=== PATIENT | male | born 1970 | race Caucasian/White ===

== ENCOUNTER 2017-08-23 09:43 | Inpatient (IN) | payer OTHER ==
[2017-08-23 10:45] LABS: #Basophils 0.1 thou/uL (0.0-0.2); #Lymphocytes 1.4 thou/uL (1.20-3.40); #Monocytes 2.3 thou/uL (0.11-0.59); %Basophils 0.3 % (0.0-1.0); %Eosinophils 0.2 % (0.0-10.0); %Lymphocytes 6.9 % (21.0-51.0); %Monocytes 11.8 % (0.0-10.0); %Neutrophils 80.9 % (42.0-75.0); Hemoglobin 12.8 g/dL (14.0-18.0); Mean Corpuscular Hemoglobin 31.4 pg (27.0-31.0); Mean Corpuscular Volume 95.3 fl (80.0-94.0); Mean Platelet Volume 6.9 fL (7.4-10.4); Platelet Count 361 thou/uL (130-400); RBC Distribution Width 11.2 % (11.5-14.5); Red Blood Cell (RBC) Count 4.08 mill/uL (4.70-6.10); White Blood Cell (WBC) Count 19.7 thou/uL (4.8-10.8)
[2017-08-23 11:12] LABS: ALT (SGPT) 51 U/L (8-55); AST (SGOT) 32 U/L (5-34); Albumin 3.5 g/dL (3.5-5.0); Alkaline Phosphatase 45 U/L (40-150); Anion Gap 16 mmol/L (10-20); BUN (Urea Nitrogen) 13 mg/dL (8.9-20.6); Bilirubin, Total 0.7 mg/dL (0.2-1.2); CRP (Inflammatory) 30.21 mg/dL (= or < 0.5); Calc. Creatinine Clearance 0 mL/min (70-130); Calcium 9.3 mg/dL (7.8-10.44); Carbon Dioxide 21 mmol/L (22-29); Chloride 104 mmol/L (98-107); Estimated GFR-MDRD 72; Globulin 4.3 g/dL (2.4-3.5); Glucose 122 mg/dL (70-105); Lipase 24 U/L (8-78); Potassium 3.6 mmol/L (3.5-5.1); Protein, Total 7.8 g/dL (6.0-8.3); Sodium 137 mmol/L (136-145)
[2017-08-23] MEDS ORDERED: Piperacillin/Tazobactam 4.5 GM in Sodium Chloride 0.9% 100 ML IVPB SCH (11:30)
[2017-08-23 11:45] LABS: INR-International Normal Ratio 1.2; Prothrombin Time 15.1 SEC (12.0-14.7)
--- NOTE | 2017-08-23 11:52 | CT ---
CT ABDOMEN AND PELVIS WITH CONTRAST: Date: 08/23/17 HISTORY: Abdominal pain. COMPARISON: None. FINDINGS: The lung bases are clear. No pericardial effusion. There is thickening of the sigmoid colon with some mild inflammation around the diverticulum. Within the left lobe of the liver, abutting the capsule, is a heterogeneous peripherally enhancing mass davin uring 7.2 x 5.9 x 5.5 cm. There are multiple central hypodensities within this mass, which is irregul ar heterogeneous. There is transhepatic attenuation difference demarcated with increased attenuation of the left lobe of the liver relative to the right. There are multiple smaller hypodense lesions in the right lobe of the liver, hepatic segment 7, measuring 1.2 and 0.7 cm. Small retroperitoneal lymph nodes. The spleen and pancreas are unremarkable. The hepatic mass displac es the middle and left hepatic veins and is interposed between the two. Skeleton unremarkable. IMPRESSION: 1. Heterogeneous hypodense mass in hepatic segment 2, abutting the capsule, interposed between the l eft and middle hepatic veins, measuring 7.2 x 5.9 x 5.5 cm. This has the appearance of hepatic absces s. There are multiple smaller hypodense lesions within hepatic segment 8, as well as segment 7. There may be some other smaller abscesses. Metastatic disease is also a possibility. There is also a separ ate low attenuation mass within segment 4b measuring 2.3 cm. 2. Thickening of the sigmoid colon with inflammation around diverticulum, mild. This may represent r esolving diverticulitis. A colonoscopic evaluation will be necessary after resolution of symptomatolo gy to evaluate for underlying mass. POS: HONG
[2017-08-23] MEDS ORDERED: Ondansetron HCl/PF 4 MG/2 ML Vial IVP PRN (12:00)
[2017-08-23] MEDS ORDERED: Ondansetron ODT 4 MG TAB SL PRN (12:00)
[2017-08-23 13:27] LABS: Bilirubin Negative (Negative); Blood, Urine Large (Negative); Clarity CLEAR (Clear); Glucose, Urine (Dipstick) Negative (Negative); Leukocyte Negative (Negative); Nitrite Negative (Negative); Protein, Urine (Dipstick) Negative (Neg-Trace); Urobilinogen 0.2 mg/dL (0.2-1.0)
[2017-08-23 13:29] LABS: Bacteria/HPF None Seen HPF (None Seen); Hyaline Casts/LPF 0-3 HYALINE CAST LPF (0-3 Hyaline); Pathc Cast-AUWi Flag 0.13 (0-2.49); RBC/HPF GREATER THAN 50-TNTC HPF (0-3); Squamous Epithelial None Seen HPF (0-3); WBC/HPF 0-3 HPF (0-3)
[2017-08-23 13:31] LABS: Specific Gravity, Urine Greater than 1.060 (1.002-1.036)
[2017-08-23] MEDS: Piperacillin/Tazobactam 4.5 GM in Sodium Chloride 0.9% 100 ML IVPB SCH (14:01)
[2017-08-23] MEDS ORDERED: diphenhydrAMINE 50 MG CAP PO PRN (14:25)
[2017-08-23] MEDS ORDERED: traMADol HCl 50 MG TAB PO PRN (14:25)
[2017-08-23] MEDS ORDERED: Sodium Chloride 0.9% 1,000 ML IV SCH (14:30)
[2017-08-23] MEDS ORDERED: Famotidine 20 MG TAB PO SCH (14:30)
[2017-08-23] MEDS ORDERED: ISOVUE-370 76%-LOCM 1 ML ONE (14:34)
[2017-08-23] MEDS ORDERED: Vancomycin HCl 1.5 GM, Admixture Fee 1 EACH in Sodium Chloride 0.9% 250 ML 300 ML IVPB SCH (14:45)
[2017-08-23] MEDS ORDERED: VANCOMYCIN IVPB PRN (14:49)
[2017-08-23] MEDS: Acetaminophen 500 MG TAB PO PRN ×2 (16:41→21:18)
--- NOTE | 2017-08-23 17:41 | HP ---
PRIMARY CARE PHYSICIAN: Dr. Samir Bhatia. CHIEF COMPLAINT: Fevers and body aches. HISTORY OF PRESENT ILLNESS: The patient established with me in the clinic on 08/05/2017 with flu-lik e symptoms. Flu swab and strep throat were negative; however, patient did have otitis media present, was treated with cefdinir with interval clearing of symptoms and fevers. Upon cessation of antibiot ics, generalized malaise and fevers returned, presented back to clinic. Flu swab repeat was negative as well. The patient instructed to call back if fevers continued and he did so last week when he no ticed a stool consistency and changed to looser with mucus. The patient with a known history of dive rticulitis in the past; however, the patient has not had any abdomen pain in the last 2-[address] ool changes prior to several days ago; started on ciprofloxacin and metronidazole over the last 48 ho urs; however, his fevers continued and he presented to the Emergency Department for evaluation and fo und to have a liver abscess on CT scan. On review of records in our clinic systems, the patient was seen in 2007 for abdomen pain at the [facility], established with Dr. Sidhu tem porarily, was sent to Dr. Mayo of Gastroenterology who recommended colonoscopy; however, no records of colonoscopy performed. The patient states his last colonoscopy was 2 years ago with [facility] after he changed insurances. CT scan of 2007 [facility] reviewed w ithout abnormality and no diverticulitis. Liver was normal. On formal review of systems, fevers and chills, positive malaise, body aches, changes in stool consis tency. No nausea, vomiting. No constipation. No abdomen pain. Positive for cough and congestion. No lower extremity edema. No palpitations, chest pain. No rashes. On review of the past family, medical and surgical history includes colonoscopy 2 years ago prior barbara moraima for injury. ALLERGIES: No known drug allergies. SOCIAL HISTORY: Lives with spouse and with children. No significant tobacco or alcohol use reported . PHYSICAL EXAMINATION: VITAL SIGNS: Review on arrival to the floor, temperature of 98.1, pulse of 91, respiratory rate of 1 6, oxygen saturation 98% on room air and blood pressure 146/78. GENERAL: The patient is alert and oriented, in no acute distress. HEENT: Normocephalic and atraumatic. Extraocular movements are intact. Sclerae are clear. Oral mu cosa is dry. NECK: Supple. HEART: Regular rate and rhythm. No murmurs auscultated. LUNGS: Clear to auscultation bilaterally. No rubs or wheezes. ABDOMEN: Protuberant, resonant to percussion, nontender. James's sign negative. No rebound. Nega tive fluid wave. No CVA tenderness. EXTREMITIES: No lower extremity edema. NEUROLOGIC: The patient is alert and oriented x3, no focal deficits. Speech is normal. REVIEW OF LABORATORY WORK: White blood cell count of 19.7, hemoglobin of 12.8, platelet count of 361 , neutrophils percentage 80.9 with 16% bands. INR of 1.2. Lactic acid of 4.3, CO2 21. Sodium 137, potassium of 3.6, creatinine of 1.1, glucose of 122, calcium of 9.3, AST of 32, ALT of 51, CRP of 30, alkaline phosphatase of 45, lipase of 24. Albumin 3.5. Urinalysis clear, large blood with too nume myke to count rbc's microscopy. No white blood cells, no leukocyte esterase. Specific gravity of 1. 06. IMAGING DATA: Abdomen CT reviewed heterogeneous hypodense mass and hepatic segment to measuring 7.2 x 5.9 x 5.5 cm consistent with hepatic abscess, multiple small hypodense lesions scattered throughout segment 87 taking the sigmoid colon consistent with diverticulum and inflamed recommending a colonos copy to rule out any underlying masses per Radiology. ASSESSMENT: A liver abscess diverticulitis, dehydration. PLAN: Emergency Department contacted Surgery for recommendations if patient was a candidate for any acute interventions. They recommended a CT liver abscess drained per Interventional Radiology, which is ordered and pending patient's n.p.o. at midnight. Consulting Gastroenterology for secondary opinion; start patient on broad-spectrum IV antibiotics, va ncomycin and Zosyn, which was started in the Emergency Department for continuation of metronidazole, would expect any fluid cultures, fluid produced from liver to be cultured and will adjust antibiotics as needed. Dehydration, start the patient on fluid bolus. We will start with additional IV fluids while patient is n.p.o. overnight for vital signs. The patient is not currently septic. We will fol low the patient's fever profile, vital signs, cell counts and liver enzymes while inpatient.
[2017-08-23] MEDS: D5 1/2 NS w/20 mEq KCL 1,000 ML IV SCH (18:23)
[2017-08-23] MEDS: Benzonatate 100 MG CAP PO PRN (18:24)
[2017-08-23] MEDS: metroNIDAZOLE 500 MG in Premix Bag 1 BAG IVPB SCH (18:24)
--- NOTE | 2017-08-23 19:44 | CON ---
DATE FOR CONSULTATION: 08/23/2017 REQUESTING PHYSICIAN: Dr. Bhatia. REASON FOR CONSULTATION: Liver lesion likely abscess HISTORY OF PRESENT ILLNESS: Juancarlos Escamilla is a very pleasant 47-year-old man who has a past medical history of diverticulitis attacks, a couple of mild attacks since 2014. He says his last colonoscop y was a couple of years ago at [facility] with the only finding being diverticular disease. No polyps removed. I do have that report. He had previously seen my GI colleague, Dr. Miky Mayo ab out 9 years ago for some abdominal pain symptoms at that time, but had not followed up with Dr. Mayo since then. At any rate, Mr. Escamilla really has no chronic gastrointestinal symptoms. About 3 wee ks ago, he started having malaise and flu-like symptoms. He was treated for otitis media and felt be tter for a while, but now for the past week, he has had recurrent fevers which have been quite signif icant despite alternating Tylenol and ibuprofen at home. Interestingly, he reports no abdominal pain throughout all of this and really no change in his normal bowel habits, certainly no hematochezia or diarrhea. His weight has been stable, but his appetite has been declining significantly. He underw ent a CT scan of the abdomen and pelvis earlier today and this demonstrated a 7.2 x 5.9 x 5.5 cm hete rogeneous density in the left hepatic lobe and multiple smaller lesions in the right lobe, most likel y consistent with abscess versus less likely metastatic disease. There is also an area of the sigmoi d colon with stranding consistent with diverticulitis. He has a leukocytosis and elevated CRP, note LFTs are normal. He is febrile, but hemodynamically stable. He was started on IV vancomycin, Zosyn and metronidazole. CT guided abscess drainage is planned for tomorrow with Interventional Radiology. Blood cultures are pending. Note the patient has no underlying history of chronic liver disease. Alcohol use is rare. He does not use injection drugs. REVIEW OF SYSTEMS: Full review of systems including constitutional, head, eyes, ears, nose, throat, GI, , cardiovascular, respiratory, musculoskeletal, and neurologic systems is negative except as no mary in the HPI. PAST MEDICAL HISTORY: Diverticulitis in 2015. Colonoscopy in 2015, showing diverticulosis. ALLERGIES: No known drug allergies. OUTPATIENT MEDICATIONS: None. INPATIENT MEDICATIONS: IV vancomycin, IV Zosyn, IV metronidazole. SOCIAL HISTORY: No smoking or alcohol use. FAMILY HISTORY: Negative for GI or liver disease. PHYSICAL EXAMINATION: VITAL SIGNS: Temperature 100.6, pulse 91, blood pressure 146/78, 98% oxygen saturation on room air. GENERAL: A 47-year-old man, lying in bed comfortably, in no distress. SKIN: No rash. No jaundice. EYES: No scleral icterus. Extraocular movements intact. ENT: Mucous membranes moist, no oral lesions. LYMPH: No submandibular, supraclavicular lymphadenopathy. THYROID: Nontender to palpation. HEART: Regular rate and rhythm. LUNGS: Clear to auscultation bilaterally. ABDOMEN: Bowel sounds are present, soft, mild tenderness to deep palpation in the lower abdomen, oth erwise no tenderness to the abdomen. No guarding or rebound tenderness. No palpable organomegaly ap preciated. EXTREMITIES: No peripheral edema. VESSELS: Radial pulses 2+ bilaterally. NEUROLOGICAL: Cranial nerves II-XII intact bilaterally. No focal deficits. LABORATORY STUDIES: WBC elevated at 19.7, CRP elevated at 30.21, hemoglobin 12.8, platelets 361. So dium 137, potassium 3.6, BUN 13, creatinine 1.11, glucose 122, lipase 24. LFTs all normal with total bilirubin 0.7, alkaline phosphatase 45, AST 32, ALT 51, albumin 3.5. Blood cultures are pending. IMAGING STUDIES: CT of the abdomen and pelvis demonstrates sigmoid diverticulitis and a 7.2 x 5.9 x 5.5 cm left hepatic lobe density which is heterogenous and likely represent an abscess. There are mu ltiple smaller lesions in the right hepatic lobe, possibly representing smaller abscesses versus less likely metastatic disease. ASSESSMENT AND PLAN: 1. Liver abscess. 2. Diverticulitis, sigmoid colon, minimally symptomatic. I have reviewed the films as well as the CT report. Overall, I agree that this likely does represent s a liver abscess rather than malignancy. It is unclear, if this is related to his diverticulitis, w rudy is actually very minimally symptomatic. We will order tumor markers including AFP, CA-19-9 and CEA to be drawn with his morning labs, but I expect those will be within normal limits. I do agree w ith the plan already in place for Interventional Radiology to aspirate and likely insert a drain into this abscess cavity tomorrow. Follow up all cultures including aspirate cultures and blood cultures . Continue with the antibiotics for now. I do not recommend any colonoscopy at this time acutely, t radha he will need a followup colon exam several weeks after resolution. Dr. Mayo is back tomorrow. Thank you for the consultation. Please call back with questions or concerns.
[2017-08-23] MEDS ORDERED: FLU VACC QS2017-18 36 mo. & older 0.5 ML SYRINGE IM ONE (21:00)
[2017-08-24] MEDS: D5 1/2 NS w/20 mEq KCL 1,000 ML IV SCH ×4 (00:28→18:32)
[2017-08-24] MEDS: Piperacillin/Tazobactam 4.5 GM in Sodium Chloride 0.9% 100 ML IVPB SCH ×2 (00:28→11:19)
[2017-08-24] MEDS: Vancomycin HCl 1.5 GM, Admixture Fee 1 EACH in Sodium Chloride 0.9% 250 ML 300 ML IVPB SCH ×2 (02:16→15:56)
[2017-08-24] MEDS: metroNIDAZOLE 500 MG in Premix Bag 1 BAG IVPB SCH ×2 (02:16→15:00)
[2017-08-24] MEDS: Benzonatate 100 MG CAP PO PRN ×3 (04:55→15:58)
[2017-08-24 05:28] LABS: #Eosinphils 0.2 thou/uL (0.0-0.7); #Lymphocytes 1.1 thou/uL (1.20-3.40); #Monocytes 1.6 thou/uL (0.11-0.59); %Eosinophils 1.2 % (0.0-10.0); %Lymphocytes 8.2 % (21.0-51.0); %Monocytes 12.8 % (0.0-10.0); %Neutrophils 77.8 % (42.0-75.0); Hemoglobin 11.4 g/dL (14.0-18.0); Mean Corpuscular HGB CONC 32.3 g/dL (32.0-36.0); Mean Corpuscular Hemoglobin 31.5 pg (27.0-31.0); Mean Corpuscular Volume 97.7 fl (80.0-94.0); Mean Platelet Volume 6.9 fL (7.4-10.4); Platelet Count 290 thou/uL (130-400); RBC Distribution Width 11.3 % (11.5-14.5); Red Blood Cell (RBC) Count 3.63 mill/uL (4.70-6.10); White Blood Cell (WBC) Count 12.8 thou/uL (4.8-10.8)
[2017-08-24 05:31] LABS: ALT (SGPT) 46 U/L (8-55); AST (SGOT) 29 U/L (5-34); Albumin 2.9 g/dL (3.5-5.0); Alkaline Phosphatase 44 U/L (40-150); Anion Gap 11 mmol/L (10-20); BUN (Urea Nitrogen) 9 mg/dL (8.9-20.6); Bilirubin, Total 0.5 mg/dL (0.2-1.2); Calc. Creatinine Clearance 139 mL/min (70-130); Calcium 8.3 mg/dL (7.8-10.44); Carbon Dioxide 25 mmol/L (22-29); Chloride 107 mmol/L (98-107); Estimated GFR-MDRD 81; Globulin 3.5 g/dL (2.4-3.5); Glucose 110 mg/dL (70-105); Lipase 18 U/L (8-78); Potassium 3.9 mmol/L (3.5-5.1); Protein, Total 6.4 g/dL (6.0-8.3); Sodium 139 mmol/L (136-145)
[2017-08-24 09:24] VITALS: BMI 33.4
[2017-08-24] MEDS ORDERED: Fentanyl 100 MCG/2 ML VIAL ONE (10:54)
[2017-08-24] MEDS ORDERED: Midazolam HCl 2 mg/2 ml Vial ONE (10:54)
[2017-08-24] MEDS: Acetaminophen 500 MG TAB PO PRN ×2 (11:19→17:30)
[2017-08-24] MEDS ORDERED: Sodium Chloride 0.9% 10 ML ONE (12:55)
--- NOTE | 2017-08-24 13:29 | CON ---
DATE OF CONSULTATION: 08/24/2017 REASON FOR CONSULTATION: Liver abscess, diverticulitis. HISTORY OF PRESENT ILLNESS: A 47-year-old with history of diverticulitis, treated with oral antimicr obials in the past, who, a few days ago, had diagnosed otitis media, treated with cefdinir with impro vement, but then recrudescence of malaise and fevers with what he describes as a sensation of burning or heat in the left side of the abdomen. He also noticed somewhat looser stool with mucus. He then had a recrudescence of fever and presented to the emergency room, and a CT scan demonstrated a liver abscess and so he is admitted now for management. The patient is heading for percutaneous aspirate, CT-guided. Awake and alert. No headaches, visual symptoms, sore throat, odynophagia, dysphagia, no toothache or back pain, no neck pain, no dyspnea, cough or sputum production. No genitourinary symp toms or joint symptoms. No neurological symptoms. PAST MEDICAL HISTORY: Diverticulitis, treated conservatively in the past. Last CT scan in 2007 did not show any inflammatory changes reportedly. ALLERGIES: None. 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 CURRENT MEDICATIONS: Tylenol, Tessalon, Benadryl, Pepcid, Flagyl, Zosyn, vancomycin. PHYSICAL EXAMINATION: VITAL SIGNS: T-max 101.8, blood pressure 140/70, pulse 83, respirations 20, O2 sat 95%. GENERAL: Appears in no distress. SKIN EXAM: Normal. Peripheral IV access. No Kay catheter. No lymphadenopathy. HEENT: Ocular movements are conjugate. Sclerae white. Oral cavity normal. NECK: Supple. LUNGS: With symmetric clear breath sounds. HEART: S1 and S2, regular rate. No tenderness. No ascites. No bladder distention. : No genital abnormalities. EXTREMITIES: Pulses are excellent in lower extremities. NEUROLOGIC EXAMINATION: Nonfocal. Cognitive function normal. LABORATORY DATA: White cell count 19,000 down to 12.8, hemoglobin 11, platelets 290 with 77% neutrop hils. Sodium 139, creatinine 1.0. Albumin down from 3.5 to 2.9. Lipase 18. Carcinoembryonic antig en 0.74, tumor marker AFP was less than 2. Urinalysis with 0-3 wbc's. Two sets of blood cultures pe nding at this time. Abdomen and pelvis CT from yesterday, heterogeneous hypodense mass, hepatic segm ent to abutting the capsule, which has the appearance of a hepatic abscess. There are multiple small er hypodense lesions also seen elsewhere, thickening of the sigmoid colon with inflammatory changes a round diverticulum, mild. ASSESSMENT: Diverticulitis, now with a liver abscess, which probably is a consequence of spread from the venous system and portal vein towards the liver. The usual pathogens including gram-negative ro ds, anaerobes, Streptococci are the main considerations. We will continue the current regimen and wa it for the aspirate with cultures, PICC line placement, and protracted IV antimicrobial therapy admin istration. The patient probably will have a drain placed and we will keep the drain in until there i s significant decrease in size of the abscess, most likely to be removed in the outpatient setting.
--- NOTE | 2017-08-24 15:36 | CT ---
CT GUIDED PERCUTANEOUS DRAINAGE OF THE LIVER: Date: 08/24/17 CLINICAL HISTORY: Hepatic abscess. PROCEDURE: Informed consent was obtained. The patient was escorted the procedural suite and pediatric oncologist imaging of the abdomen was acquired. The lesion of interest was located. The patient's ventral abdomen was then mar ked, and prepped and draped in the standard sterile fashion. Conscious sedation was provided by the adiology nurse and the patient was monitored throughout the procedure in stable condition. Topical an esthesia was achieved with 1% lidocaine. Using a percutaneous 13.8 cm needle, the lesion of interest was approached. The needle did reach the periphery/anterior edge of the lesion. A guidewire was advan carmela after inner stylette of the needle was removed. The guidewire did not freely coil within the pock et. Various attempts to advance the guidewire did not result in coiling of the wire within the cavity . Therefore, the guidewire was removed, and attempt for aspiration was performed. Two separate aspira tions were then performed with the 13.8 cm needle, longest needle available. Scan, sanguinous aspirat e was achieved into two separate sterile containers which were sent to laboratory for analysis. All devices were then removed from the patient. The patient tolerated the procedure well and without evidence of complication. IMPRESSION: CT guided percutaneous aspiration of hepatic abscess, as above. The deep, central location of the les ion was beyond the accessible length of the longest available drainage kit, as discussed above. Procedural results called to patient's physician, Samir Bhatia, at the time of dictation. CODE CR. POS: [facility]
[2017-08-24] MEDS ORDERED: Guaifenesin DM 100-10/5 ML UDCUP PO PRN (18:00)
[2017-08-24] MEDS ORDERED: guaiFENesin/Codeine Phosphate 200 mg/20 mg 10 ml UD Cup PO PRN (18:15)
[2017-08-24] MEDS ORDERED: Dextromethorphan Polistirex 30 MG/5 ML (89 ML BOTTLE) PO PRN (18:15)
[2017-08-24] MEDS: Guaifenesin DM 100-10/5 ML UDCUP PO PRN (18:31)
--- NOTE | 2017-08-24 20:09 | PRG ---
DATE OF SERVICE: 08/24/2017 SUBJECTIVE: He underwent CT guided drainage of the liver abscess today. The needle aspiration of th e abscess was performed from the edge of the abscess; however, the guidewire could not be placed deep ly into the abscess and a drain was not able to be placed. The patient has no acute complaints at th is time, otherwise. OBJECTIVE: VITAL SIGNS: Temperature 98.4, pulse 77, and blood pressure 160/74. GENERAL: He is in no acute distress. He is awake and alert. CHEST: Lungs are clear to auscultation bilaterally. ABDOMEN: Soft, nontender, and nondistended. LABORATORY DATA: White blood cell count 12.8, hemoglobin 11.4, and platelets 290. IMPRESSION: Liver abscess apparently from diverticulitis. He had a colonoscopy 2 years ago at [facility] by Dr. Bolden, which was otherwise negative. RECOMMENDATIONS: 1. Plan is for PICC line placement and IV antibiotics per Dr. Hare. 2. Followup imaging and duration of antibiotics again will be determined by Dr. Hare. 3. We will advance his diet. 4. Follow up in GI clinic in 6 weeks. 5. I will sign off for now. Please call if GI can be of assistance.
--- NOTE | 2017-08-24 23:29 | PRG ---
DATE OF SERVICE: 08/24/2017 HISTORY OF PRESENT ILLNESS: The patient reports he continues to have cough, has only been going on f or 2 to 3 days now. The patient's daughter was diagnosed with flu in clinic today. Flu swab of the patient was resulted as negative. The patient continues to have intermittent fevers treated with Tyl enol and states he is still feeling fatigued, slightly worse with initiation of the antibiotics in pr evious outpatient. He states he has good urination without difficulty on IV fluids. When for liver drainage abscess, he had a CT with central location of abscess, radiology unable to aspirate drain si te, aspiration was attempted at LINQ apparatus and sent for culture. OBJECTIVE: VITAL SIGNS: Temperature of 100.3, pulse of 77, respiratory rate of 20, oxygen saturation of 99% on room air, and blood pressure 160/94. GENERAL: The patient is alert and oriented, in no acute distress. HEENT: Head is normocephalic, atraumatic. Extraocular movements intact. Sclerae are clear. Oral m ucosa is moist. NECK: Supple. HEART: Regular rate and rhythm. No murmurs auscultated at the time of exam. LUNGS: Clear to auscultation bilaterally. ABDOMEN: Soft, nontender, positive bowel sounds throughout. EXTREMITIES: Lower extremities without cyanosis or edema. NEUROLOGIC: The patient is alert and oriented x3, no focal deficits. LABORATORY DATA: White blood cell count improved to 12.8, hemoglobin of 11.4, platelets of 290, neut rophils slightly improved to 77.8. Tumor marker AFP less than 2, CEA of 0.74, lipase 18, albumin of 3.5, AST of 29, ALT of 46, glucose of 110, creatinine of 1.0. Potassium of 3.9, sodium of 139, and c hloride of 107. ASSESSMENT AND PLAN: Liver abscess, diverticulitis, gastroesophageal reflux disease, cough. Continu ing cough coverage. No influenza as above. Lungs are clear. Infectious Disease consulted, recommen ding PICC line for prolonged IV antibiotics. We will follow their recommendations. Follow up leah otto is pending. The patient reports he is stable on Pepcid at this point in time regarding gastroesoph ageal reflux disease. P.r.n. cough medicines ordered.
[2017-08-25] MEDS: Guaifenesin DM 100-10/5 ML UDCUP PO PRN ×3 (00:07→17:47)
[2017-08-25] MEDS: Piperacillin/Tazobactam 4.5 GM in Sodium Chloride 0.9% 100 ML IVPB SCH ×2 (00:07→12:06)
[2017-08-25] MEDS: D5 1/2 NS w/20 mEq KCL 1,000 ML IV SCH (01:49)
[2017-08-25] MEDS: metroNIDAZOLE 500 MG in Premix Bag 1 BAG IVPB SCH ×2 (01:49→14:12)
[2017-08-25 02:23] LABS: Vancomycin, Trough 10.9 ug/mL
[2017-08-25] MEDS: Vancomycin HCl 1.75 GM in Sodium Chloride 0.9% 500 ML IVPB SCH ×2 (03:02→15:42)
[2017-08-25] MEDS: Acetaminophen 500 MG TAB PO PRN ×3 (04:14→17:37)
[2017-08-25 05:42] LABS: #Eosinphils 0.2 thou/uL (0.0-0.7); #Lymphocytes 1.4 thou/uL (1.20-3.40); #Monocytes 1.4 thou/uL (0.11-0.59); #Neutrophils 9.7 thou/uL (1.40-6.50); %Basophils 0.1 % (0.0-1.0); %Eosinophils 1.5 % (0.0-10.0); %Lymphocytes 10.8 % (21.0-51.0); %Monocytes 10.7 % (0.0-10.0); %Neutrophils 76.9 % (42.0-75.0); Hemoglobin 10.6 g/dL (14.0-18.0); Mean Corpuscular HGB CONC 32.7 g/dL (32.0-36.0); Mean Corpuscular Hemoglobin 31.6 pg (27.0-31.0); Mean Corpuscular Volume 96.6 fl (80.0-94.0); Mean Platelet Volume 6.8 fL (7.4-10.4); Platelet Count 278 thou/uL (130-400); RBC Distribution Width 11.2 % (11.5-14.5); Red Blood Cell (RBC) Count 3.35 mill/uL (4.70-6.10); White Blood Cell (WBC) Count 12.6 thou/uL (4.8-10.8)
[2017-08-25 05:58] LABS: ALT (SGPT) 39 U/L (8-55); AST (SGOT) 24 U/L (5-34); Albumin 2.7 g/dL (3.5-5.0); Alkaline Phosphatase 39 U/L (40-150); Anion Gap 10 mmol/L (10-20); BUN (Urea Nitrogen) 6 mg/dL (8.9-20.6); Bilirubin, Total 0.5 mg/dL (0.2-1.2); Calc. Creatinine Clearance 152 mL/min (70-130); Calcium 8.1 mg/dL (7.8-10.44); Carbon Dioxide 23 mmol/L (22-29); Chloride 106 mmol/L (98-107); Estimated GFR-MDRD 89; Globulin 3.3 g/dL (2.4-3.5); Glucose 110 mg/dL (70-105); Lipase 18 U/L (8-78); Potassium 3.8 mmol/L (3.5-5.1); Sodium 135 mmol/L (136-145)
--- NOTE | 2017-08-25 09:58 | PRG ---
DATE OF SERVICE: 08/25/2017 HISTORY OF PRESENT ILLNESS: The patient states he broke into a cold sweat this morning which is the first time he feels like his fever has truly broken since it occurred. He continued on Tylenol episo dically for this. He still reports fatigue. Still reports cough, no phlegm production. No abdomen pain. He is still urinating and having bowel movements without difficulty. VITAL SIGNS: Temperature of 100.3 yesterday evening, a.m. temperature of 98.7, pulse of 68, respirat ory rate of 18, oxygen saturation 100% on room air, blood pressure 152/90. LABORATORY DATA: White blood cell count improved to 12.6, hemoglobin at 10.6, status post attempted liver aspiration, platelet count 278, % neutrophils 76.9, slightly improved, albumin of 2.7. Lipase of 18, AST of 24, ALT of 39, total bilirubin 0.5, glucose 110, creatinine 0.9, CO2 23, sodium 135, p otassium 3.8, vancomycin trough of 10.9. Blood cultures x2 currently negative. Influenza negative. Gram stain, no organisms on attempted liver aspirate. PHYSICAL EXAMINATION: GENERAL: The patient is alert and oriented, in no acute distress. HEENT: Normocephalic, atraumatic. Extraocular movements are intact. Sclerae are clear. Oral mucos a is moist. NECK: Supple. HEART: Regular rate and rhythm at time of exam. No murmurs auscultated. LUNGS: Clear to auscultation bilaterally. ABDOMEN: Soft, nontender, positive bowel sounds throughout. No rebound or guarding. EXTREMITIES: Lower extremities without cyanosis or edema. NEUROLOGIC: The patient is alert and oriented x3, no focal deficits. Speech is normal. ASSESSMENT AND PLAN: Liver abscess, diverticulitis. Gastroenterology signed off, recommended charley nuation of plan for PICC line and long-term IV antibiotics. We will follow up on cultures and Infect ious Disease recommendations for outpatient antibiotics. The patient will likely remain inpatient fo r the next couple of days while cultures are being read out why he continues to have fevers. We will continue the Tylenol, will likely cover with low dose amlodipine regarding the patient's blood press ure elevation and hypertension, it may be stress induced reaction, but we will continue to follow.
[2017-08-25] MEDS ORDERED: Sodium Chloride 0.9% 10 ML ONE ×3 (10:48→21:38)
--- NOTE | 2017-08-25 18:42 | PRG ---
DATE OF SERVICE: 08/25/2017 SUBJECTIVE: The liver abscess percutaneous aspirate procedure was not successful or at least partial ly successful. The area of the abscess was beyond the reach of the catheter and the guidewire could not be threaded all the way to the abscess cavity. A little bit of serosanguineous fluid was aspirat ed and submitted for cultures. The patient has developed a cough, which is short of paroxysmal, last s for a few minutes and then resolves. No headaches. No abdominal pain. No diarrhea. No genitouri nary symptoms. OBJECTIVE: VITAL SIGNS: T-max 101.6, blood pressure 160/82, pulse 81, respirations 18-20. GENERAL: Awake and alert. Coughing intermittently. LUNGS: With clear breath sounds. HEART: S1, S2, regular rate. ABDOMEN: Soft, not distended or tender. LABORATORY: White cell count 12.6, hemoglobin 10.6, platelets 278. Sodium 135, creatinine 0.92. Li ellen profile normal. Bacterial culture pending. Blood cultures negative thus far. ASSESSMENT: Liver abscess, diverticulitis, now with cough. 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 We will switch him to meropenem f rom the current antimicrobials. The usual pathogens involved in the liver abscess should respond wel l to meropenem. The amoebic liver abscess is unlikely. PICC line placement is not ordered yet.
--- NOTE | 2017-08-25 19:58 | RAD ---
PA AND LATERAL CHEST: 08/25/17 HISTORY: Cough. Heart size appears slightly enlarged. Mediastinal structures are unremarkable. The lungs are clear of infiltrates. IMPRESSION: Minimal cardiomegaly. POS: [facility]
[2017-08-25] MEDS: Meropenem 1 GM in Sterile Water 20 ML SLOW IVP SCH (21:41)
[2017-08-25] MEDS ORDERED: Meropenem 1 GM in Sodium Chloride 0.9% 100 ML IVPB SCH (22:00)
[2017-08-26] MEDS: Acetaminophen 500 MG TAB PO PRN ×2 (01:35→08:40)
[2017-08-26] MEDS ORDERED: Sodium Chloride 0.9% 10 ML ONE ×3 (04:23→19:54)
[2017-08-26] MEDS: Meropenem 1 GM in Sterile Water 20 ML SLOW IVP SCH ×3 (04:48→20:03)
[2017-08-26 06:06] LABS: ALT (SGPT) 48 U/L (8-55); AST (SGOT) 37 U/L (5-34); Albumin 2.9 g/dL (3.5-5.0); Alkaline Phosphatase 38 U/L (40-150); Anion Gap 12 mmol/L (10-20); BUN (Urea Nitrogen) 8 mg/dL (8.9-20.6); Bilirubin, Total 0.3 mg/dL (0.2-1.2); Calc. Creatinine Clearance 120 mL/min (70-130); Calcium 8.5 mg/dL (7.8-10.44); Carbon Dioxide 24 mmol/L (22-29); Chloride 106 mmol/L (98-107); Estimated GFR-MDRD 68; Globulin 3.4 g/dL (2.4-3.5); Glucose 102 mg/dL (70-105); Potassium 3.7 mmol/L (3.5-5.1); Protein, Total 6.3 g/dL (6.0-8.3); Sodium 138 mmol/L (136-145)
[2017-08-26 06:14] LABS: Band 2 % (5-11); Lymphocytes 14 % (21-51); MDiff Complete? YES; Macrocytosis SLIGHT = 6-15 cells (100X) (0-5/hpf); Mean Corpuscular Hemoglobin 31.8 pg (27.0-31.0); Mean Corpuscular Volume 96.4 fl (80.0-94.0); Mean Platelet Volume 6.5 fL (7.4-10.4); Metamyelocyte 1 % (0-0); Monocytes 18 % (0-10); Neutrophil 65 % (42-75); PLT Morphology Comment Appears Adequate; Platelet Count 260 thou/uL (130-400); Polychromasia SLIGHT = 2-3 cells (100X) (0-2/hpf); RBC Distribution Width 11.4 % (11.5-14.5); Red Blood Cell (RBC) Count 3.47 mill/uL (4.70-6.10); White Blood Cell (WBC) Count 8.2 thou/uL (4.8-10.8)
--- NOTE | 2017-08-26 08:10 | ULT ---
BILATERAL LOWER EXTREMITY VENOUS DOPPLER ULTRASOUND: Date: 08-26-17 Comparison: None. History: Pain, edema, swelling, cough, assess for DVT. Technique: Multiplanar grayscale sonographic imaging of the venous structures of bilateral lower extr emities obtained with color flow and spectral analysis. FINDINGS: Bilateral common femoral veins, greater saphenous, profunda femoral veins, femoral veins, popliteal v eins and posterior tibial veins are patent. Normal blood flow, augmentation, and compression noted wi thin the deep venous system bilaterally. No evidence for DVT. IMPRESSION: No evidence for deep venous thrombosis of either lower extremity. POS: [facility]
[2017-08-26] MEDS: Oseltamivir 75 MG CAP PO SCH ×2 (08:36→21:18)
[2017-08-26] MEDS ORDERED: Amlodipine 5 MG TAB PO SCH (09:00)
[2017-08-26] MEDS: Fluticasone Propionate Nasal Spray 16 gm Bottle NASAL SCH (09:00)
[2017-08-26] MEDS: Promethazine 25 MG TAB PO PRN ×2 (09:13→20:05)
[2017-08-26] MEDS: Ibuprofen 600 MG TAB PO PRN ×2 (09:46→21:17)
--- NOTE | 2017-08-26 12:53 | SPC ---
SONOGRAPHIC GUIDED RIGHT UPPER EXTREMITY PICC PLACEMENT: HISTORY: Liver abscess. FINDINGS: After explaining the procedure and obtaining informed consent, the left upper extremity was prepped a nd draped in the usual sterile fashion. Sterile technique, buffered local anesthesia, sonographic gu idance, and a 22 gauge needle were used to carefully access the left basilic vein. Standard techniqu e was then used to place the tip of a 5 [place] single-lumen PICC so that the tip lies at the level of the right atrium. The catheter was flushed and secured externally. The patient tolerated the proce dure well and was returned in unchanged condition. IMPRESSION: Technically successful right upper extremity peripherally inserted central catheter placement. The c atheter is now ready for use. POS: [facility]
--- NOTE | 2017-08-26 19:32 | PRG ---
DATE OF SERVICE: 08/26/2017 HISTORY OF PRESENT ILLNESS: This patient states that he has had the best night sleep since arrival, continues to have fevers, has had 1-2 bouts of emesis, continues to have good bowel movements; hamlet matthews, does report that his abdomen appears more bloated than it was prior to disease process in the last couple of weeks; however, he continues to have no pain. Had PICC lines successfully placed in left brachial vein, and successful ultrasound of lower extremities without DVT finding, found to have infl uenza on major viral panel, subculture in progress on liver aspirate. PHYSICAL EXAMINATION: VITAL SIGNS: Temperature 101.2, pulse 70, respiratory rate of 18, oxygen saturation 98% on room air, blood pressure of 128/82. GENERAL: The patient is alert and oriented, no acute distress. HEENT: Normocephalic, atraumatic. Extraocular movements are intact. Sclerae are clear. HEART: Regular rate and rhythm. No murmurs auscultated. LUNGS: Clear to auscultation bilaterally. No rubs or wheezes. ABDOMEN: Protuberant, positive bowel sounds throughout, soft, nontender. EXTREMITIES: No pitting edema of lower extremities. NEUROLOGIC: Alert and oriented x3. No focal deficits. LABORATORY DATA: White blood cell count improved to 8.2, hemoglobin 11, platelet count of 260, perce nt neutrophils 65, bands less than 6. Sodium of 138, potassium of 3.5, CO2 of 24, creatinine of 1.1, AST of 37, ALT of 48, alkaline phosphatase 38, albumin of 2.9. ASSESSMENT AND PLAN: Liver abscess, influenza, hypoalbuminemia. The patient initiated on Tamiflu, c hanged this into meropenem, requested case management to set up home health suspicion of IV antibioti cs, awaiting culture read, that is a subculture process. We will follow up with Dr. Hare' recommend ations as we can do. Continue to control the patient's nausea and gastroesophageal reflux disease wi th p.r.n. medications. Continuing Tylenol and Motrin for fevers, much improved white blood cell coun t and blood pressure today. Initiating protein shakes t.i.d. Follow up dietary recommendations [place].
[2017-08-27] MEDS: Meropenem 1 GM in Sterile Water 20 ML SLOW IVP SCH ×3 (04:02→20:19)
[2017-08-27 07:19] LABS: Hemoglobin 12.4 g/dL (14.0-18.0); Mean Corpuscular HGB CONC 31.6 g/dL (32.0-36.0); Mean Corpuscular Hemoglobin 30.9 pg (27.0-31.0); Mean Platelet Volume 6.5 fL (7.4-10.4); Platelet Count 315 thou/uL (130-400); RBC Distribution Width 11.5 % (11.5-14.5); Red Blood Cell (RBC) Count 4.02 mill/uL (4.70-6.10); White Blood Cell (WBC) Count 7.6 thou/uL (4.8-10.8)
[2017-08-27 07:35] LABS: ALT (SGPT) 77 U/L (8-55); AST (SGOT) 54 U/L (5-34); Albumin 3.1 g/dL (3.5-5.0); Alkaline Phosphatase 38 U/L (40-150); Anion Gap 12 mmol/L (10-20); BUN (Urea Nitrogen) 14 mg/dL (8.9-20.6); Bilirubin, Total 0.2 mg/dL (0.2-1.2); Calc. Creatinine Clearance 101 mL/min (70-130); Calcium 8.8 mg/dL (7.8-10.44); Carbon Dioxide 29 mmol/L (22-29); Chloride 106 mmol/L (98-107); Estimated GFR-MDRD 56; Globulin 3.9 g/dL (2.4-3.5); Glucose 95 mg/dL (70-105); Potassium 3.9 mmol/L (3.5-5.1); Sodium 143 mmol/L (136-145)
[2017-08-27 08:30] LABS: Band 1 % (5-11); Eosinophils 3 % (0-10); Lymphocytes 14 % (21-51); MDiff Complete? YES; Monocytes 13 % (0-10); Neutrophil 68 % (42-75); RBC Morphology Normal; Reactive Lymphocytes 1 % (0-10)
[2017-08-27] MEDS: Promethazine 25 MG TAB PO PRN ×2 (09:16→20:19)
[2017-08-27] MEDS: Oseltamivir 75 MG CAP PO SCH ×2 (09:16→20:35)
[2017-08-27] MEDS: Ibuprofen 600 MG TAB PO PRN ×2 (09:20→20:19)
--- NOTE | 2017-08-27 10:18 | PRG ---
DATE OF SERVICE: 08/27/2017 HISTORY OF PRESENT ILLNESS: The patient is ambulatory, walking up and down the unit, getting coffee with mask on, to not spread flu. He says he feels better every single day. No abdomen pain. Verbal ized understanding regarding protein shakes to help boost up his albumin and his protuberant and bloa ting of his abdomen likely secondary to some mild fluid collection. He has no new complaints today. OBJECTIVE: VITAL SIGNS: Temperature 99.5, pulse of 90, respiratory rate of 20, oxygen saturation 97% on room ai r, blood pressure overnight 132/85, a.m. reading of 178/97. GENERAL: The patient is alert and oriented, no acute distress. HEENT: Normocephalic, atraumatic. Extraocular movements are intact. Sclerae are clear. Oral mucos a is moist. NECK: Supple, nontender. HEART: Regular rate and rhythm at the time of exam. No murmurs auscultated. LUNGS: Clear to auscultation bilaterally. No rubs or wheezes. ABDOMEN: Protuberant, positive bowel sounds throughout. No rebound or guarding. EXTREMITIES: Lower extremities without cyanosis or edema. NEUROLOGIC: The patient is alert and oriented x3, no focal deficits. Speech is normal. LABORATORY DATA: White blood cell count 7.6, hemoglobin 12.4, platelet count of 315, neutrophil perc ent of 68. Sodium 143, potassium 3.9, CO2 of 29, creatinine of 1.3, glucose of 95, calcium 8.8, tota l bilirubin 0.2, AST 54, ALT of 77, alkaline phosphatase 38. Albumin of 3.1. ASSESSMENT AND PLAN: Liver abscess, diverticulitis, acute kidney injury, transaminitis, hypoalbumine mable. He is currently on meropenem t.i.d., now worsening of left shift on cell counts. Liver aspirat e on subculture likely potentially back on type of organism today. Antibiotics and susceptibilities may take 1-2 more days. We will await those culture results and Dr. Hare's recommendations. The jarrell rivera was shown how to use the bedside pump for his PICC line placed in left brachial vein. He has d one successfully with nursing helped x2. Case management was consulted to help set up home infusion antibiotics, he is awaiting a specific antibiotic and duration and infusion protocol. He will be fol lowed to Infectious Disease at this point in time. We will continue to trend the patient's liver enz ymes and renal function while inpatient, likely suffered acute kidney injury secondary to antibiotics such as vancomycin which are nephrotoxic. These have been discontinued and the patient's antibiotic regimen has been simplified. He may also be experiencing some of this secondary to clearing of infe ctious processes. Protein shakes have been ordered for patient's hypoalbuminemia present on admissio n following rehydration and resolution of volume contraction. The patient had not been eating for 2- 3 weeks, but they represent protein malnutrition at this point.
[2017-08-27] MEDS: Fluticasone Propionate Nasal Spray 16 gm Bottle NASAL SCH (11:17)
[2017-08-27] MEDS ORDERED: Sodium Chloride 0.9% 10 ML ONE ×2 (12:07→20:11)
--- NOTE | 2017-08-27 13:28 | PRG ---
DATE OF SERVICE: 08/27/2017 SUBJECTIVE: Still having some intermittent fever spikes, but feels better in general. No vomiting, no dyspnea, no abdominal pain. PHYSICAL EXAMINATION: VITAL SIGNS: T-max 101.6, BP 130/84, pulse 92, respirations 20. GENERAL: Awake, alert, oriented. LUNGS: Clear. HEART: S1, S2, regular rate. ABDOMEN: Soft, not distended. LABORATORY DATA: Labs are better with white cell count down to 7.6, hemoglobin 12.4 and creatinine is up a little bit at 1.38, AST 54, ALT 77, alkaline phosphatase 38. Cultures from the liver aspirate thus far negative. Respiratory PCR panel showed influenza B detected. ASSESSMENT AND DISCUSSION: Liver abscess associated with diverticulitis and associated with influenza B infection. The patient to be discharged on IV Invanz 1 g/day, treatment plan is until the first week of September approximately or second week of September, followup CT scans. Drainage was not feasible due to the distance of the abscess cavity from the skin. MTDD
[2017-08-28] MEDS: Meropenem 1 GM in Sterile Water 20 ML SLOW IVP SCH ×2 (04:15→12:02)
[2017-08-28 06:10] LABS: ALT (SGPT) 95 U/L (8-55); AST (SGOT) 61 U/L (5-34); Albumin 2.8 g/dL (3.5-5.0); Alkaline Phosphatase 32 U/L (40-150); Anion Gap 14 mmol/L (10-20); BUN (Urea Nitrogen) 14 mg/dL (8.9-20.6); Bilirubin, Total 0.3 mg/dL (0.2-1.2); Calc. Creatinine Clearance 108 mL/min (70-130); Calcium 8.6 mg/dL (7.8-10.44); Carbon Dioxide 23 mmol/L (22-29); Chloride 107 mmol/L (98-107); Estimated GFR-MDRD 60; Globulin 3.6 g/dL (2.4-3.5); Glucose 89 mg/dL (70-105); Protein, Total 6.4 g/dL (6.0-8.3); Sodium 140 mmol/L (136-145)
[2017-08-28 07:31] LABS: Hemoglobin 12.4 g/dL (14.0-18.0); Mean Corpuscular HGB CONC 32.4 g/dL (32.0-36.0); Mean Corpuscular Hemoglobin 31.5 pg (27.0-31.0); Mean Corpuscular Volume 97.3 fl (80.0-94.0); Mean Platelet Volume 6.8 fL (7.4-10.4); Platelet Count 260 thou/uL (130-400); RBC Distribution Width 11.6 % (11.5-14.5); Red Blood Cell (RBC) Count 3.92 mill/uL (4.70-6.10); White Blood Cell (WBC) Count 6.6 thou/uL (4.8-10.8)
[2017-08-28 08:27] LABS: Band 2 % (5-11); Eosinophils 2 % (0-10); Lymphocytes 27 % (21-51); MDiff Complete? YES; Monocytes 10 % (0-10); Neutrophil 58 % (42-75); RBC Morphology Normal
[2017-08-28] MEDS: Fluticasone Propionate Nasal Spray 16 gm Bottle NASAL SCH (09:34)
[2017-08-28] MEDS: Oseltamivir 75 MG CAP PO SCH ×2 (09:34→18:13)
[2017-08-28] MEDS ORDERED: Heparin 1,000 UNITS/ML VIAL ONE (14:01)
[2017-08-28] MEDS ORDERED: Ertapenem 1 GM in Sodium Chloride 0.9% 100 ML IVPB SCH (17:15)
[2017-08-28 18:40] VITALS: BP 139/89; TEMP 98.4
--- NOTE | 2017-08-31 10:05 | DIS ---
DATE OF ADMISSION: 08/23/2017 DATE OF DISCHARGE: 08/28/2017 CHIEF COMPLAINT: Recurrent fevers. HISTORY OF PRESENT ILLNESS: On admission the patient was treated for upper respiratory infection- l ede symptoms with otitis media approximately 2 weeks prior to admission, fevers and symptoms, had re currence of fevers again with upper respiratory infection-like symptoms, tested negative for the flu, both times. Was told if not improving to represent for evaluation and did so in the emergency depar tment and was found to have elements of diverticulitis and liver abscess after his stool starting to have changes and he did not respond to oral antibiotics after 24-48 hours on an outpatient basis of c iprofloxacin and Flagyl. HOSPITAL COURSE/ Attempted aspiration of liver abscess was made by Interventional Radiology after br ief consultation in the Emergency Department of Surgery followed by consultation with Dr. Anne follow ed by Dr. Mayo. Minimal aspirate was able to be obtained. No drainage was able to be achieved. No drain placed secondary to centralized location and lack of long enough equipment to reach. As the p atient was responding well to IV antibiotics, more invasive measures were not undertaken. The antibi otics were titrated by Dr. Hare of Infectious Disease, deescalated from broad spectrum vancomycin an d Zosyn and metronidazole to meropenem. PICC line was placed in the left brachial area with home he alth IV antibiotics set up for Invanz on an outpatient basis for better compliance with once daily us e. The patient remained stable throughout. Liver enzymes slowly crept up in the hospitalization. Wh ite blood cell counts had normalized. The patient intervally had sick contact of flu with family mem bers and was diagnosed with the flu, was treated with Tamiflu during hospitalization. Nearing hospit al discharge the patient did achieve afebrile status greater than 24 hours with T-max prior to discha rge of 100.2 in the last 24 hours. The patient's blood pressure was labile during his diagnosis of i nfluenza and treatment with IV antibiotics. The patient has never been treated before on an outpatie nt basis for hypertension. DISCHARGE DIAGNOSES: 1. Diverticulitis. 2. Liver abscess. 3. Dehydration. 4. Acute kidney injury, resolved. 5. Transaminitis. 6. Hypertension. 7. Influenza. 8. Hypoalbuminemia. DISCHARGE DIET: Includes regular plus protein shakes 2 to 3 times a day. DISCHARGE ACTIVITY: As tolerated. No contact sports recommended. DISCHARGE CONDITION: Good. DISCHARGE FOLLOWUP: Include with Dr. Hare approximately 1 month, home health with weekly labs, juan r o[place]nor in 7-[address] Samir Bhatia. DISCHARGE INSTRUCTIONS: The patient was discharged home with Home Health for IV PICC line care and a ntibiotic administration, Invanz 1 gram q. 24 hours. DISCHARGE MEDICATIONS: Other discharge medications include Tamiflu 75 mg 1 tab p.o. b.i.d., Norvasc 5 mg 1 tab p.o. daily, Tylenol 1000 mg p.o. q.6-8h. p.r.n. for fever, max 4000 per day. We will follow up on his initial lab work and follow up in the clinic.
== END 2017-08-28 19:15 | disposition home health service (06) | DRG 442 ==
LOC: ERS 09:43 → T4-B 13:44 → 3SE 08-24 12:22
PROVIDERS: ADMIT Family Medicine; ATTEND Family Medicine
PROC: 0F903ZX Drainage of Liver, Percutaneous Approach, Diagnostic (ICD-10-PCS; principal; 2017-08-24)
PROC: 02H633Z Insertion of Infusion Device into Right Atrium, Percutaneous Approach (ICD-10-PCS; 2017-08-26)
DX: K75.0 Abscess of liver (principal); K57.20 Diverticulitis of large intestine with perforation and abscess without bleeding; N17.9 Acute kidney failure, unspecified; E88.09 Other disorders of plasma-protein metabolism, not elsewhere classified; E86.0 Dehydration; R74.0 Nonspecific elevation of levels of transaminase and lactic acid dehydrogenase [LDH]; J10.1 Influenza due to other identified influenza virus with other respiratory manifestations; I10 Essential (primary) hypertension
CPT/HCPCS: 36415; 36569; 47010; 71046; 74177; 77002; 80053; 80202; 81003; 81015; 82105; 82378; 83605; 83690; 85025; 85610; 86140; 86301; 87040; 87070; 87205; 87633; 87804; 93970; 96361; 96365; 99152; 99153; A4216; C1729; C1751; J1335; J1644; J2185; J2250; J2543; J3010; J3370; J7050

== ENCOUNTER 2017-10-05 08:29 | Outpatient (CLI) | payer OTHER ==
[2017-10-05] MEDS ORDERED: Iopamidol 370 76% 100 ML VIAL ONE (09:00)
--- NOTE | 2017-10-05 09:40 | CT ---
CT ABDOMEN AND PELVIS WITH ORAL AND IV CONTRAST: Date: 10/05/17 HISTORY: Liver abscess, history of diverticulitis. COMPARISON: 08/23/17. FINDINGS: The heterogeneous mass in the left lobe of the liver consistent with liver abscess is smaller, measur ing 4.2 cm in largest dimension (7.2 cm largest dimension on the exam of 08/23/17). There is sigmoid diverticulosis with a 12.0 mm hypodense lesion in the posterior wall of the sigmoid colon consistent with a small intramural abscess. No free air, free fluid, or lymphadenopathy seen in the abdomen or pelvis. The spleen, pancreas, adrenal glands, and kidneys are normal. No calcified gallstones are seen. The s mall bowel loops are not abnormally dilated. A normal appearing appendix is present. There is no evid ence of aneurysmal dilatation of the abdominal aorta. There are bilateral fat-containing inguinal her niae. Bony structures are unremarkable. IMPRESSION: 1. Interval reduction in size of the liver abscess since 08/23/17. 2. Small intramural sigmoid abscess. This was not seen on the previous study. POS: [facility]
== END 2017-10-05 08:30 | disposition home or self-care (01) ==
LOC: SCSCT 08:29
PROVIDERS: ATTEND Family Medicine
DX: K75.0 Abscess of liver (principal); K57.30 Diverticulosis of large intestine without perforation or abscess without bleeding
CPT/HCPCS: 74177